=== PATIENT | female | born 1965 | race Caucasian/White ===

== ENCOUNTER 2022-03-06 18:18 | Emergency (ER) | payer MEDICAID, OTHER ==
[~2022-03-06] VITALS: Ht 157.5 cm; Wt 87.5 kg
[2022-03-06 18:36] VITALS: BP 146/92
[2022-03-06 19:18] LABS: Basophils # (auto) 0 10 ^3/uL (0-0.2); Basophils % (auto) 0.3 % (0.0-2.0); Eosinophils # (auto) 0.1 10 ^3/uL (0-0.8); Eosinophils % (auto) 1.6 % (0.0-7.0); Hematocrit 41.7 % (36.0-46.0); Hemoglobin 13.8 g/dL (12.2-16.2); Lymphocytes # (auto) 2.4 10 ^3/uL (0.4-5.4); Lymphocytes % (auto) 31.8 % (10.0-50.0); Mean Corpuscular Hemoglobin 28.4 pg (28.0-32.0); Mean Corpuscular Volume 86.1 fL (80.0-100.0); Monocytes # (auto) 0.5 10 ^3/uL (0-1.3); Monocytes % (auto) 6.6 % (0.0-12.0); Neutrophils # (auto) 4.5 10 ^3/uL (1.6-8.6); Neutrophils % (auto) 59.7 % (37.0-80.0); Nucleated Red Blood Cells % 0.1 %; Red Blood Cells 4.85 10^6/uL (4.0-5.20); Red Cell Distribution Width 14.2 % (11.8-14.3); White Blood Cell 7.6 10^3/uL (4.4-10.8)
[2022-03-06 19:41] LABS: Albumin 3.9 g/dL (3.4-5.0); Calcium 8.9 mg/dL (8.5-10.1); Potassium 3.8 mmol/L (3.5-5.1)
[2022-03-06 19:44] LABS: Bilirubin, Total 1.2 mg/dL (0.2-1.0); Total Protein 7.2 g/dL (6.4-8.2)
[2022-03-06 19:53] LABS: INR 0.95 (0.9-1.15); Partial Thromboplastin Time 26.5 sec (24.6-33.4)
[2022-03-06] MEDS ORDERED: ALUM & MAG HYDROX-SIMETH LIQ(MAALOX) 30 ML PO ONE (22:30)
== END 2022-03-07 01:13 | disposition left against medical advice (07) ==
LOC: ER 18:18 → EDBD 18:18 → ER 03-07 01:13
DX: R10.13 Epigastric pain (principal)
CPT/HCPCS: 36415; 71045; 80053; 83880; 84484; 85025; 85610; 85730; 93005

== ENCOUNTER 2025-02-05 11:31 | Outpatient (CLI) | payer MEDICAID ==
[2025-02-05 12:11] LABS: Hematocrit 42.6 % (36.0-46.0); Hemoglobin 14.1 g/dL (12.2-16.2); Mean Corpuscular Hemoglobin 29.0 pg (28.0-32.0); Mean Corpuscular Volume 87.8 fL (80.0-100.0); Nucleated Red Blood Cells % 0.1 %
[2025-02-05 12:32] LABS: Alanine Aminotransferase 20 U/L (7-40); Albumin 4.1 g/dL (3.2-4.8); Alkaline Phosphatase 65 U/L (46-116); Anion Gap 9 (5-15); BUN/Creatinine Ratio 14.3 (10.0-20.0); Blood Urea Nitrogen 11 mg/dL (9-23); Calcium 9.1 mg/dL (8.7-10.4); Carbon Dioxide 27 mmol/L (20-31); Glucose 76 mg/dL (74-106); HDL Cholesterol 58 mg/dL (40-59); Magnesium 2.2 mg/dL (1.6-2.6); Potassium 4.7 mmol/L (3.5-5.1); Sodium 144 mmol/L (136-145); Total Protein 6.8 g/dL (5.7-8.2); Triglycerides 85 mg/dL (< 150)
[2025-02-05 12:37] LABS: Chloride 108 mmol/L (98-107)
[2025-02-05 12:38] LABS: Bilirubin, Total 1.7 mg/dL (0.2-1.0); Cholesterol 224 mg/dL (< 200)
== END 2025-02-05 17:00 | disposition home or self-care (01) ==
LOC: LAB 11:31
PROVIDERS: ATTEND Nurse Practitioner Family
DX: I10 Essential (primary) hypertension (principal); R73.9 Hyperglycemia, unspecified; Z00.01 Encounter for general adult medical examination with abnormal findings
CPT/HCPCS: 36415; 80053; 80061; 82043; 83036; 83735; 84443; 85025

== ENCOUNTER 2025-02-15 10:48 | Outpatient (CLI) | payer MEDICAID ==
--- NOTE | 2025-02-15 15:19 | DVHSR ---
APPROVED REPORT EXAM: Two-dimensional and M-mode echocardiogram with Doppler and color Doppler. INDICATION Hypertension RISK FACTORS Hypertension: Height: 61, Weight: 143 DIMENSIONS LVDd 3.8 (3.8-5.7cm) LA (2D) 3.8 (1.9-4.0cm) Aortic Root 3.2 (2.0-3.7cm) LVDs 2.5 (2.5-4.0cm) LA (MM) (1.9-4.0cm) Aortic Cusp Exc 1.4 (1.5-2.0cm) EF (%) 66.0 (55-70%) Rt. Atrium (1.9-4.0cm) Asc. Aorta cm IVSd 1.0 (0.7-1.1cm) RV (D) (1.8-2.4cm) PWd 1.0 (0.7-1.1cm) Mitral Valve Mitral Mitral Stenosis E wave 1.02m/s MV Mean GR. mmHg A wave 0.68m/s MV Peak GR. mmHg E/A ratio 1.5 2D MVA cm2 DECEL Time 146ms PRESS 1/2 Time ms Aortic Valve Aortic Valve Aortic Stenosis V1 1.19m/s AO Mean GR. 6mmHg V2 1.77m/s AO Peak GR. 12mmHg LVOT Diameter 1.8 (1.8-2.4cm) Doppler SARATH 1.71cm2 Pulmonic Valve V2 0.88m/s Tricuspid Valve TR Velocity 2.24m/s RVSP 23mmHg Conclusion Sinus rhythm. Normal chamber sizes. Valves are normal. Left ventricular function is preserved at 60% with normal RV function. Dopplers unremarkable. Mild TR. RVSP of 20 mmHg. No pericardial effusion masses or vegetations.
== END 2025-02-18 17:00 | disposition home or self-care (01) ==
LOC: XYW 10:48
PROVIDERS: ATTEND Nurse Practitioner Family
DX: I08.0 Rheumatic disorders of both mitral and aortic valves (principal); I10 Essential (primary) hypertension; R07.9 Chest pain, unspecified
CPT/HCPCS: 93306